=== PATIENT | female | born 1995 | race African-American/Black ===

== ENCOUNTER 2016-12-25 08:52 | Emergency (ER) | payer OTHER ==
[2016-12-25 08:58] VITALS: TEMP 98.7; BMI 17.9
[2016-12-25 10:27] VITALS: BP 129/62; PULSE 70
== END 2016-12-25 11:35 | disposition home or self-care (01) ==
LOC: JER 08:52
DX: O46.8X2 Other antepartum hemorrhage, second trimester (principal); Z3A.20 20 weeks gestation of pregnancy
CPT/HCPCS: 76801-TC; 76830-TC; 99281-25

== ENCOUNTER 2017-04-17 20:05 | Inpatient (IN) | payer OTHER ==
[2017-04-17] MEDS ORDERED: DINOPROSTONE 10 MG VAGINAL SUPPOSITORY VG ONE (21:00)
[2017-04-17] MEDS ORDERED: TUBERCULIN PPD 5 TU/0.1ML SYRINGE (IN PATIENT USE ONLY) ID ONE ×2 (21:15→23:00)
[2017-04-17 21:24] LABS: BASO % 0.2 % (0-2.0); HEMATOCRIT 33.4 % (32.4-45.2); HEMOGLOBIN 11.2 GM/dL (10.7-15.3); LYMPH % 18.4 % (8-40); MCH 29.6 pg (25.7-33.7); MCHC 33.5 g/dl (32.0-36.0); MEAN CELL VOLUME 88.6 fl (80-96); MEAN PLT VOLUME 9.1 fl (7.5-11.1); MONO % 6.7 % (3.8-10.2); NEUT % 73.7 % (42.8-82.8); PLATELET COUNT 214 K/MM3 (134-434); RBC 3.77 M/mm3 (3.60-5.2); RDW 13.3 % (11.6-15.6); WHITE BLOOD COUNT 9.6 K/mm3 (4.0-10.0)
[2017-04-17 21:38] VITALS: BMI 19.7
[2017-04-17 21:42] LABS: INR 0.92 (0.82-1.09); PROTHROMBIN TIME (PATIENT) 10.4 SEC (9.98-11.88)
[2017-04-17 21:45] LABS: ACTIVATED PTT 27.8 SECONDS (26.9-34.4)
[2017-04-17 21:51] LABS: ANION GAP 7 (8-16); BLOOD UREA NITROGEN 11 mg/dL (7-18); CALCIUM 8.6 mg/dL (8.5-10.1); CHLORIDE 104 mmol/L (98-107); CO2 27 mmol/L (21-32); CREATININE 0.6 mg/dL (0.55-1.02); GLUCOSE,RANDOM 89 mg/dL (74-106); POTASSIUM 3.8 mmol/L (3.5-5.1); SODIUM 138 mmol/L (136-145)
[2017-04-17] MEDS ORDERED: CLINDAMYCIN 900 MG PREMIX IVPB 900 MG/50 ML BAG IVPB ONE (22:39)
[2017-04-17] MEDS ORDERED: BUTORPHANOL TARTRATE 1 MG/ML VIAL IVPUSH PRN (23:04)
[2017-04-17] MEDS ORDERED: PROMETHAZINE HCL 25 MG/1 ML VIAL IVPUSH ONE (23:05)
--- NOTE | 2017-04-17 23:12 | HP ---
Past Medical History - Primary Care Physician PCP:: Edvin Brown - Admission Chief Complaint: 36 weeks, iugr ,for cervidil induction History of Present Illness: 21yo f edc by sono 05/09/2016, admitted for cervidil induction for suspected IUGR,no pain, no vaginal bleeding cx 2 cm 50 vx -2 mi, fhr cat 1 History Source: Patient Limitations to Obtaining History: No Limitations - Past Medical History ...: 3 ...Para: 0 ...Term: 0 ...: 0 ...Spon : 0 ...Induced : 2 ...Multiple Gestation: 0 ...LMP: 08/04/16 ... Weeks Gestation by Dates: 36.4 ...EDC by Dates: 05/11/17 ...EDC by Sono: 05/09/17 - Past Surgical History Hx Myomectomy: No Hx Transabdominal Cerclage: No - Smoking History Smoking history: Never smoked Have you smoked in the past 12 months: No - Alcohol/Substance Use Hx Alcohol Use: No - Social History History of Recent Travel: No Home Medications - Allergies Allergies/Adverse Reactions: Allergies Allergy/AdvReac Type Severity Reaction Status Date / Time loracarbef [From Lorabid] Allergy Hives Verified 02/02/17 15:35 Penicillins Allergy Rash Verified 02/02/17 15:36 - Home Medications Home Medications: Ambulatory Orders Progesterone, Micronized [Progesterone] 200 mg VG DAILY 12/25/16 Review of Systems - Review of Systems Constitutional: reports: No Symptoms Eyes: reports: No Symptoms HENT: reports: No Symptoms Neck: reports: No Symptoms Cardiovascular: reports: No Symptoms Respiratory: reports: No Symptoms Gastrointestinal: reports: No Symptoms Genitourinary: reports: No Symptoms Breasts: reports: No Symptoms Reported Musculoskeletal: reports: No Symptoms Integumentary: reports: No Symptoms Neurological: reports: No Symptoms Hematology/Lymphatic: reports: No Symptoms Psychiatric: reports: No Symptoms Physical Exam - Maternity Vital Signs: Vital Signs Temperature 97.2 F L 04/17/17 21:30 Pulse Rate 82 04/17/17 21:30 Respiratory Rate 16 04/17/17 21:30 Blood Pressure 96/58 04/17/17 21:30 O2 Sat by Pulse Oximetry (%) Constitutional: Yes: Well Nourished, No Distress, Calm Eyes: Yes: WNL, Conjunctiva Clear, EOM Intact HENT: Yes: WNL, Atraumatic, Normocephalic Neck: Yes: WNL, Supple, Trachea Midline Cardiovascular: Yes: WNL, Regular Rate and Rhythm Breast(s): Yes: WNL - Abdominal Exam/OB Number of Fetuses: Single Presentation: Vertex Contractions: No Intensity: Unaware Monitor Mode: External Category: I Accelerations: None - Vaginal Exam/OB Speculum Exam: No Dilatation (cm): 2 cm Effacement (%): 50 Amniotic Membrane Status: Intact Presentation: Vertex/Position Station: -2 - Physical Exam Musculoskeletal: Yes: WNL Extremities: Yes: WNL Edema: LLE: Trace, RLE: Trace Psychiatric: Yes: WNL - Labs Lab Results: CBC, BMP 04/17/17 21:08 04/17/17 21:08 Hemorrhage Risk Assessment - Risk Factors Medium Risk Factors: Yes: None High Risk Factors: Yes: None Risk Score: 1 Risk Level: Medium Risk Problem List - Problems (1) with 36 completed weeks gestation Code(s): Z3A.36 - 36 WEEKS GESTATION OF (2) Intrauterine growth restriction (IUGR) affecting care of mother Code(s): O36.5990 - MATERN CARE FOR OTH OR SUSP POOR FETL GRTH, UNSP TRI, UNSP Qualifiers: Fetus number: single or unspecified fetus Trimester: third trimester Qualified Code(s): O36.5930 - Maternal care for other known or suspected poor growth, third trimester, not applicable or unspecified Assessment/Plan admit for cervidil induction, FHM pain mamnagement
[2017-04-18] MEDS ORDERED: AMPICILLIN SODIUM 2 GM VIAL ONE (07:29)
[2017-04-18] MEDS: DEXTROSE 5%-LACTATED RINGERS 1,000 ML IV SCH ×2 (07:30→07:48)
[2017-04-18] MEDS ORDERED: AMPICILLIN - 2 GM/100 ML BAG IVPB ONE (07:45)
--- NOTE | 2017-04-18 08:16 | PN ---
Progress Note (short form) - Note Progress Note: cx 4 cm, 80 vx -1 mi , fhr cat 1 contraction regular , q 3 min, wants pain meds Problem List - Problems (1) with 36 completed weeks gestation Code(s): Z3A.36 - 36 WEEKS GESTATION OF (2) Intrauterine growth restriction (IUGR) affecting care of mother Code(s): O36.5990 - MATERN CARE FOR OTH OR SUSP POOR FETL GRTH, UNSP TRI, UNSP Qualifiers: Fetus number: single or unspecified fetus Trimester: third trimester Qualified Code(s): O36.5930 - Maternal care for other known or suspected poor growth, third trimester, not applicable or unspecified
[2017-04-18] MEDS ORDERED: FENTANYL/BUPIVACAINE/NS/PF - PCEA - 50 ML DISP.SYRIN EP ONE ×2 (08:20→12:48)
[2017-04-18] MEDS ORDERED: ELECTROLYTE-148 SOLN 1,000 ML IV SCH (08:45)
[2017-04-18] MEDS ORDERED: NALOXONE HCL 0.4 MG/ML VIAL IVPUSH PRN (09:35)
[2017-04-18] MEDS ORDERED: FENTANYL/BUPIVACAINE/NS/PF - PCEA - 50 ML DISP.SYRIN EP SCH (09:45)
[2017-04-18] MEDS: AMPICILLIN - 1 GM/100 ML BAG IVPB SCH ×2 (11:51→15:56)
[2017-04-18] MEDS ORDERED: LIDOCAINE HCL 1% PRESERVATIVE FREE - 30ML VIAL ONE (13:49)
[2017-04-18] MEDS ORDERED: OXYTOCIN 20 UNITS in 0.9% NS 20 UNIT/1,000 ML INFUS.BAG IV ONE (13:49)
[2017-04-18] MEDS: OXYTOCIN 20 UNITS in 0.9% NS 20 UNIT/1,000 ML INFUS.BAG IV SCH ×2 (14:10→18:26)
[2017-04-18] MEDS ORDERED: BISACODYL 10 MG SUPP.RECT RC PRN (14:23)
[2017-04-18] MEDS ORDERED: BENZOCAINE 28 GM HEMORRHOIDAL OINTMENT TP PRN (14:23)
[2017-04-18] MEDS ORDERED: oxyCODONE HCL 5 MG TABLET PO PRN (14:23)
[2017-04-18] MEDS ORDERED: WITCH HAZEL 50% (TUCKS) 40 PAD/JAR PAD TP PRN (14:23)
[2017-04-18] MEDS ORDERED: BENZOCAINE 20% 57 GM BOTTLE TP PRN (14:23)
[2017-04-18] MEDS ORDERED: METHYLERGONOVINE MALEATE 0.2 MG/1 ML AMP IM PRN (14:23)
[2017-04-18] MEDS ORDERED: D5W-LR W/ 20 UNITS OXYTOCIN 1,000 ML IV SCH (14:30)
[2017-04-18] MEDS: FERROUS SO4 325 MG TABLET (FP) PO SCH (17:15)
[2017-04-18] MEDS: IBUPROFEN 600 MG TABLET (FP) PO PRN ×2 (17:15→20:45)
[2017-04-18] MEDS: ACETAMINOPHEN 325 MG TABLET (FP) PO PRN ×2 (17:16→20:45)
[2017-04-19] MEDS: IBUPROFEN 600 MG TABLET (FP) PO PRN ×4 (00:42→23:09)
[2017-04-19] MEDS: ACETAMINOPHEN 325 MG TABLET (FP) PO PRN ×4 (00:42→23:11)
--- NOTE | 2017-04-19 06:48 | PN ---
Post Progress Note - Subjective Subjective: PPD # 1 s/p no complains, ambulating, voiding Type of Delivery: Vital Signs: Vital Signs Temperature 98.2 F 04/19/17 06:00 Pulse Rate 57 L 04/19/17 06:00 Respiratory Rate 20 04/19/17 06:00 Blood Pressure 119/69 04/19/17 06:00 O2 Sat by Pulse Oximetry (%) 99 04/18/17 14:30 Breast Exam: Yes: Soft Uterus: Yes: Fundus Firm Abdomen/GI: Yes: Abdomen soft Lochia: Yes: Rubra Lochia, amount: Small Extremities: Yes: Calves non-tender Perineum: Yes: Episiotomy Activity: Ambulating - Labs Labs: CBC WBC 9.6 K/mm3 (4.0-10.0) 04/17/17 21:08 RBC 3.77 M/mm3 (3.60-5.2) 04/17/17 21:08 Hgb 11.2 GM/dL (10.7-15.3) 04/17/17 21:08 Hct 33.4 % (32.4-45.2) 04/17/17 21:08 MCV 88.6 fl (80-96) 04/17/17 21:08 MCH 29.6 pg (25.7-33.7) 04/17/17 21:08 MCHC 33.5 g/dl (32.0-36.0) 04/17/17 21:08 RDW 13.3 % (11.6-15.6) 04/17/17 21:08 Plt Count 214 K/MM3 (134-434) 04/17/17 21:08 MPV 9.1 fl (7.5-11.1) 04/17/17 21:08 Neutrophils % 73.7 % (42.8-82.8) 04/17/17 21:08 Lymphocytes % 18.4 % (8-40) 04/17/17 21:08 Monocytes % 6.7 % (3.8-10.2) 04/17/17 21:08 Eosinophils % 1.0 % (0-4.5) 04/17/17 21:08 Basophils % 0.2 % (0-2.0) 04/17/17 21:08 Assessment/Plan 21yo P1 now s/p Induced for IUGR VSS, Afibrile h/h stable Baby Rh negative, no need for RhoGam cont. routine care Plan to d/c 04/20/17
[2017-04-19] MEDS: FERROUS SO4 325 MG TABLET (FP) PO SCH ×2 (08:01→17:30)
[2017-04-19 08:44] LABS: BASO % 0.3 % (0-2.0); EOS % 0.3 % (0-4.5); HEMATOCRIT 31.7 % (32.4-45.2); HEMOGLOBIN 10.3 GM/dL (10.7-15.3); LYMPH % 14.2 % (8-40); MCH 28.4 pg (25.7-33.7); MCHC 32.4 g/dl (32.0-36.0); MEAN CELL VOLUME 87.7 fl (80-96); MONO % 7.2 % (3.8-10.2); PLATELET COUNT 191 K/MM3 (134-434); RBC 3.62 M/mm3 (3.60-5.2); WHITE BLOOD COUNT 14.9 K/mm3 (4.0-10.0)
[2017-04-19] MEDS: PRENATAL VITAMINS W/ FOLIC ACID TABLET (FP) PO SCH (10:03)
--- NOTE | 2017-04-19 10:03 | DS ---
Physical Exam-BAGGER MEAT Vital Signs: Vital Signs Temperature 98.2 F 04/19/17 06:00 Pulse Rate 57 L 04/19/17 06:00 Respiratory Rate 20 04/19/17 06:00 Blood Pressure 119/69 04/19/17 06:00 O2 Sat by Pulse Oximetry (%) 99 04/18/17 14:30 Constitutional: Yes: Well Nourished HENT: Yes: WNL Neck: Yes: WNL Cardiovascular: Yes: WNL, Regular Rate and Rhythm Respiratory: Yes: WNL, Regular, CTA Bilaterally Gastrointestinal: Yes: WNL, Normal Bowel Sounds, Soft Pelvis: Yes: WNL Vaginal Exam: Yes: Normal ....Post : Yes: Uterus firm, Uterus non-tender Breast(s): Yes: WNL Musculoskeletal: Yes: WNL Extremities: Yes: WNL Edema: No Integumentary: Yes: WNL Wound/Incision: Yes: Clean/Dry Neurological: Yes: WNL ...Motor Strength: WNL Psychiatric: Yes: WNL Labs: CBC, BMP 04/19/17 08:00 04/17/17 21:08 Delivery - Delivery Type of Anesthesia: Local, Epidural Episiotomy/Laceration: Midline EBL (cc): 300 Delivery, Single - Stages of Labor Date 1st Stage Initiatied: 04/18/17 Time 1st Stage Initiated: 07:00 Date 2nd Stage Initiated: 04/18/17 Time 2nd Stage Initiated: 13:50 Date of Delivery: 04/18/17 Time of Delivery: 14:04 Time Placenta Delivered: 14:05 - Condition of Veterinarian Epidemiologist/Doctor Of Podiatric Medicine Present: No Gender: Female Weight: 4 lb 11 oz Position: Left, OA Total Hours ROM (Hrs/Mins): 15MIN - 1 Minute Total Score: 9 5 Minutes Total Score: 9 - Turner Feeding Plan Initial Plan: Elected not to breastfeed exclusively throughout hospitalization Discharge Summary Reason For Visit: LABOR Current Active Problems Intrauterine growth restriction (IUGR) affecting care of mother (Acute) with 36 completed weeks gestation (Acute) Condition: Good - Instructions Diet, Activity, Other Instructions: Physical activity Resume your normal everyday activity as tolerated no heavy lifting or exercise until seen by your surgeon. You may walk unlimited jay of and climb stairs. You may resume driving the car when you feel safe and comfortable behind the wheel. No sexual activity as instructed. Wound care If you have a bandage, leave it on, and keep dry for 48-72 hours. After that time discard the outer bandage. If they are tapes on the skin under the out of bandage leave them in place. They will peel off in the next 7 to 10 days. Do Not Peel them off. You may shower the day after surgery. If there are tapes present on the skin, you may shower over them. Diet There are no dietary restrictions. Eat healthy, high-fiber foods. Drink 6 to 8 glasses of liquid each day. This will assist in keeping your bowels are regular. Pain management You may take Tylenol or acetaminophen or Ibuprofen (for example, Motrin, Advil etc.) from my pain prescription medication is ordered should be taken as prescribed for moderate to severe pain. Call MD for any of the following: Severe pain not relieved by medication Fever of 101 or higher Excessive bleeding or drainage on dressing Inability to urinate Disposition: HOME
[2017-04-19] MEDS ORDERED: SENNOSIDES/DOCUSATE COMBO (SENNA PLUS) TABLET (UD) PO PRN (22:00)
[2017-04-20] MEDS: ACETAMINOPHEN 325 MG TABLET (FP) PO PRN (07:09)
[2017-04-20] MEDS: IBUPROFEN 600 MG TABLET (FP) PO PRN (07:09)
[2017-04-20] MEDS: FERROUS SO4 325 MG TABLET (FP) PO SCH (08:17)
[2017-04-20] MEDS: PRENATAL VITAMINS W/ FOLIC ACID TABLET (FP) PO SCH (09:45)
[2017-04-20 11:20] VITALS: BP 117/67; PULSE 68; TEMP 98.4
== END 2017-04-20 14:00 | disposition home or self-care (01) | DRG 775 ==
LOC: JLDR 20:05 → J3W 04-18 15:59
PROVIDERS: ADMIT Obstetrics & Gynecology; ATTEND Obstetrics & Gynecology
PROC: 3E0P7VZ Introduction of Hormone into Female Reproductive, Via Natural or Artificial Opening (ICD-10-PCS; 2017-04-17)
PROC: 10E0XZZ Delivery of Products of Conception, External Approach (ICD-10-PCS; principal; 2017-04-18)
DX: O36.5930 Maternal care for other known or suspected poor fetal growth, third trimester, not applicable or unspecified (principal); Z3A.36 36 weeks gestation of pregnancy; Z37.0 Single live birth
CPT/HCPCS: 36415; 59409; 80048; 85025; 85610; 85730; 86593; 86850; 86870; 86900; 86901; 86902; 87389